=== PATIENT | female | born 1980 | race Caucasian/White ===

== ENCOUNTER → 2019-04-18 | Outpatient (CLI) | payer OTHER ==
--- NOTE | 2019-04-25 09:30 | Diagnostic Imaging Report ---
#[id number] - MGSCRBIL #BILATERAL DIGITAL SCREENING MAMMOGRAM WITH CAD: 04/18/2019 CLINICAL: Routine screening. Comparison is made to exams dated: 04/03/2016 mammogram and 01/19/2014 mammogram - [facility]. Current study contains 6 films. The tissue of both breasts is heterogeneously dense. This may lower the sensitivity of mammography. Current study was also evaluated with a Computer Aided Detection (CAD) system. There is a 1.1 cm density with an obscured margin in the left breast at 6 o'clock middle depth. No other significant masses, calcifications, or other findings are seen in either breast. IMPRESSION: INCOMPLETE: NEEDS ADDITIONAL IMAGING EVALUATION The 1.1 cm density in the left breast is indeterminate. Compression views as well as an ultrasound are recommended. The patient will be contacted by the Mammography Department to schedule this appointment. JULIENNE GAFFNEY M.D. ct/penrad:04/21/2019 16:48:08 Electrical Sign Wirer Helper: Jayda BECERRA(R)(M), [facility] letter sent: Additional Imaging Needed Mammogram BI-RADS: 0 Indeterminate
== END ==
LOC: MAMMO 14:44
PROVIDERS: ATTEND Obstetrics & Gynecology
DX: Z12.31 Encounter for screening mammogram for malignant neoplasm of breast (principal)
CPT/HCPCS: 77067

== ENCOUNTER → 2019-05-19 | Outpatient (CLI) | payer OTHER ==
--- NOTE | 2019-05-22 09:11 | Diagnostic Imaging Report ---
#[id number] - USBRELIMLT ULTRASOUND OF THE LEFT BREAST : 05/19/2019 Comparison is made to exams dated: 05/19/2019 mammogram and 04/18/2019 mammogram - [facility]. Real-time ultrasound was performed on the left breast. There is an benign 8 mm oval cyst with a smooth internal wall in the left breast at 6 o'clock anterior depth. This oval cyst is anechoic. This correlates with mammography findings. IMPRESSION: BENIGN There is no sonographic evidence of malignancy. The 8 mm oval cyst in the left breast is benign. A 1 year screening mammogram is recommended. JULIENNE GAFFNEY M.D. ct/penrad:05/19/2019 16:32:36 Public Speaking Professor: JOSR DAVILA RDNJ, [facility] letter sent: Normal Exam Ultrasound BI-RADS: 2 Benign
--- NOTE | 2019-05-22 09:11 | Diagnostic Imaging Report ---
#[id number] - MGDXLT #UNILATERAL LEFT DIGITAL DIAGNOSTIC MAMMOGRAM WITH SPOT COMPRESSION: 05/19/2019 Comparison is made to exams dated: 04/18/2019 mammogram and 04/03/2016 mammogram - [facility]. The tissue of the left breast is heterogeneously dense. This may lower the sensitivity of mammography. There is a benign 8 mm oval cyst with a circumscribed margin in the left breast at 6 o'clock anterior depth. This is seen in additional views. This correlates with ultrasound findings. No other significant masses or calcifications are seen in the breast. IMPRESSION: BENIGN See the report for ultrasound performed the same day for additional details. There is no mammographic evidence of malignancy. A 1 year screening mammogram is recommended. The patient will be notified by letter of the results. JULIENNE GAFFNEY M.D. ct/penrad:05/19/2019 16:31:57 Drapery Worker: Jayda BECERRA(Prakash)(Zule[place]), [facility] letter sent: Normal Exam Mammogram BI-RADS: 2 Benign
== END ==
LOC: MAMMO 13:31
PROVIDERS: ATTEND Obstetrics & Gynecology
DX: R92.8 Other abnormal and inconclusive findings on diagnostic imaging of breast (principal)

== ENCOUNTER → 2020-05-08 | Outpatient (CLI) | payer BC | LOC: MAMMO 14:30 | PROVIDERS: ATTEND Obstetrics & Gynecology | DX: Z12.31 Encounter for screening mammogram for malignant neoplasm of breast (principal) | CPT/HCPCS: 77067 ==